=== PATIENT | male | born 1960 | race Caucasian/White ===

== ENCOUNTER 2017-11-05 00:23 | Observation (INO) | payer OTHER ==
[~2017-11-05] VITALS: Ht 188 cm; Wt 119.0 kg
[2017-11-05 00:31] VITALS: BP 128/90
[2017-11-05] MEDS ORDERED: METFORMIN (00:35)
[2017-11-05] MEDS ORDERED: AMLODIPINE (00:35)
[2017-11-05] MEDS ORDERED: LOSARTAN (00:35)
[2017-11-05] MEDS ORDERED: JANUVIA (00:36)
[2017-11-05] MEDS ORDERED: CIALIS (00:36)
[2017-11-05] MEDS ORDERED: NEXIUM (00:36)
[2017-11-05 00:58] LABS: ABSOLUTE EOSINOPHILS 0.1 thou/uL (0.0-0.7); ABSOLUTE LYMPHOCYTES 2.3 thou/uL (0.8-5.3); ABSOLUTE MONOCYTES 0.7 thou/uL (0.0-1.2); ABSOLUTE NEUTROPHILS 4.2 thou/uL (1.6-8.1); BASOPHILS 0.6 %; EOSINOPHILS 1.5 %; HEMATOCRIT 44.1 % (42.0-52.0); HEMOGLOBIN 14.9 gm/dL (14.0-18.0); LYMPHOCYTES 31.5 %; MCH 30.6 pg (26.0-34.0); MCHC 33.7 g/dL (28.0-37.0); MCV 90.8 fL (80.0-100.0); MONOCYTES 9.4 %; MPV 8.9 fl. (7.2-11.1); NUCLEATED RBCS 0 /100WBC; PLATELET COUNT* 177 thou/uL (150-400); RBC 4.86 mil/uL (4.50-6.00); RDW-CV 12.7 % (10.5-14.5); WBC 7.4 thou/uL (4.0-11.0)
[2017-11-05 01:08] LABS: ANION GAP 14 mmol/L (7-16); BUN 14 mg/dL (7-18); CALCIUM 8.4 mg/dL (8.5-10.1); CHLORIDE 101 mmol/L (98-107); CO2 22 mmol/L (21-32); GLUCOSE 347 mg/dL (70-99); POTASSIUM 4.2 mmol/L (3.5-5.1); SODIUM 137 mmol/L (136-145)
[2017-11-05 01:22] LABS: ALBUMIN 3.7 g/dL (3.4-5.0); ALKALINE PHOSPHATASE 64 U/L (46-116); LIPASE 201 U/L (73-393); MAGNESIUM 1.9 mg/dL (1.8-2.4); SGOT 27 U/L (15-37); SGPT 72 U/L (30-65); TOTAL BILIRUBIN 0.3 mg/dL (<0.1-1.0); TOTAL PROTEIN 7.2 g/dL (6.4-8.2); TROPONIN-I LEVEL <0.06 ng/mL (<0.06)
[2017-11-05 02:11] VITALS: BP 128/76
[2017-11-05 02:30] VITALS: BP 128/76
[2017-11-05 08:00] VITALS: BP 138/89
--- NOTE | 2017-11-05 10:13 | EKG ---
[place] [address] ELECTROCARDIOGRAM REPORT Name: KEERTHIAYLEEN Room: [address] IN [facility]#: [id number] Admission: 11/05/17 Attend Phys: Chelsie Wilkinson MD Discharge: Date of : 56 Report #: [id number] THIS REPORT FOR: //name// [facility] ED Test Date: 2017-11-05 Test Time: 00:25:08 Pat Name: AYLEEN PENDLETON Department: Room: Gender: M [employer]: SANJUANITA : 1960 Requested By: Alberto Oakley Order Number: [id number] MD: Ranjan Shah Measurements Intervals [place] Rate: 94 P: 66 [place]: 151 QRS: 77 QRSD: 97 T: 8 QT: 357 QTc: 447 Interpretive Statements Sinus rhythm Probable left atrial enlargement Low voltage, precordial leads No previous ECG available for comparison Electronically Signed On 11-05-2017 10:12:54 CDT by Ranjan Shah [email or web address] <ELECTRONICALLY SIGNED> By: Carito Shah MD, [facility] 11/05/17 1012 0025 Carito Shah MD, FACC /EPI
[2017-11-05 12:00] VITALS: BP 131/84
--- NOTE | 2017-11-05 15:48 | NUR ---
ASSUMED CARE OF PT AT 0730. PT HAS BEEN A&O X4 CALM AND COOPERATIVE. PT VSS AND HAS BEEN TRACING ST-SR ON THE MONITOR. PT VOICED THAT THEY WANT TO DISCHARGE TO DR GUTIERREZ. THIS NURSE SPOKE TO THE PT AND HIS AND THEY STATED THAT THEY WANTED TO LEAVE AMA IF DR GUTIERREZ DID NOT WANT TO DISCHARGE THEM. DR ABDOULAYE RAMIREZ TOLD THIS NURSE THAT THE PT MAY LEAVE AMA IF THEY DESIRED BUT HE WOULD NOT DISCHARGE THEM HE BELIEVED THEY NEEDED TO STAY FOR MORE TESTING. PT WAS EXPLAINED THE RISK OF DISCHARGING AMA AND POSSIBLE OUTCOMES. PT WAAS ENCOURAGED TO STAY BUT DECLINED AND REQUESTED TO BE DISCHARGED AMA. IV AND UX MANAGER REMOVED AND PT SIGNED AMA PAPERWORK. PT TOOK ALL PERSONAL BELONGINGS AT TIME OF DISCHARGE. PT LEFT THE FLOOR AT 1553, TRANSPORTED BY NURSING STAY IN A WHEEL CHAIR, PT LEFT IN PERSONAL VEHICLE DRIVEN BY HIS .
--- NOTE | 2017-11-06 12:05 | EKG ---
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
== END 2017-11-05 15:53 | disposition left against medical advice (07) ==
LOC: M.ERS 00:23 → M.2W 01:32 → M.TBA-ER 01:32 → M.2W 01:32
PROVIDERS: Emergency Medicine Emergency Medical Services; ADMIT Internal Medicine
DX: I25.118 Atherosclerotic heart disease of native coronary artery with other forms of angina pectoris (principal); E66.9 Obesity, unspecified; K21.9 Gastro-esophageal reflux disease without esophagitis; I10 Essential (primary) hypertension; E11.9 Type 2 diabetes mellitus without complications; Z72.89 Other problems related to lifestyle; Z87.891 Personal history of nicotine dependence; Z53.21 Procedure and treatment not carried out due to patient leaving prior to being seen by health care provider